=== PATIENT | male | born 1950 | race Caucasian/White ===

== ENCOUNTER 2018-04-09 14:51 | Emergency (ER) | payer OTHER ==
--- NOTE | 2018-04-09 15:43 | ER ---
Nurse's Notes [facility] Name: Remy Irwin Sr Age: 67 yrs Sex: Male : 1950 Arrival Date: 04/09/2018 Time: 14:55 Bed 30 Private MD: Out, [facility] Diagnosis: Other bursitis of elbow, left elbow Presentation: 04/09 14:58 Presenting complaint: Patient states: swelling to L elbow for almost a month. my ch Medicare nurse said it sounds like bursitis, and that I should get it checked. Transition of care: patient was not received from another setting of care. Onset of symptoms was March 2018. Risk Assessment: Do you want to hurt yourself or someone else? Patient reports no desire to harm self or others. Initial Sepsis Screen: Does the patient meet any 2 criteria? No. Patient's initial sepsis screen is negative. Does the patient have a suspected source of infection? No. Patient's initial sepsis screen is negative. Care prior to arrival: None. 14:58 Method Of Arrival: Ambulatory 14:58 Acuity: ABISAI 5 Triage Assessment: 15:01 General: Appears in no apparent distress. comfortable, Behavior is calm, cooperative, ch appropriate for age. Pain: Denies pain. Historical: - Allergies: 15:01 Codeine; - Home Meds: 15:01 amlodipine 10 mg tab 1 tab once daily [Active]; ibuprofen Oral [Active]; - PMHx: 15:01 Hypertension; skin ca; - PSHx: 15:01 Hand - left; - Immunization history:: Adult Immunizations up to date. - Social history:: Smoking status: Patient uses tobacco products, smokes one pack cigarettes per day. - Ebola Screening: : Patient negative for fever greater than or equal to 101.5 degrees Fahrenheit, and additional compatible Ebola Virus Disease symptoms Patient denies exposure to infectious person Patient denies travel to an Ebola-affected area in the 21 days before illness onset No symptoms or risks identified at this time. Screenin:10 Abuse screen: Denies threats or abuse. Denies injuries from another. Nutritional ed1 screening: No deficits noted. Tuberculosis screening: No symptoms or risk factors identified. Fall Risk None identified. Assessment: 15:09 General: Appears in no apparent distress. comfortable, Behavior is calm, cooperative. ed1 Pain: Denies pain. Neuro: Level of Consciousness is awake, alert, obeys commands, Oriented to person, place, time, situation. Cardiovascular: Denies chest pain, Heart tones S1 S2 present. Respiratory: Airway is patent Respiratory effort is even, unlabored, Respiratory pattern is regular, symmetrical, Breath sounds are clear bilaterally. GI: No signs and/or symptoms were reported involving the gastrointestinal system. : No signs and/or symptoms were reported regarding the genitourinary system. EENT: No signs and/or symptoms were reported regarding the EENT system. Derm: Skin is pink, warm \T\ dry. Musculoskeletal: Circulation, motion, and sensation intact. Range of motion: intact in all extremities, Swelling present in left elbow. 15:12 General: The previous assessment is accurate, call light remains within reach. . 16:06 Reassessment: Patient appears in no apparent distress at this time. No changes from ed1 previously documented assessment. Patient and/or family updated on plan of care and expected duration. Pain level reassessed. Patient is alert, oriented x 3, equal unlabored respirations, skin warm/dry/pink. Patient denies pain at this time. Vital Signs: 15:01 BP 148 / 87; Pulse 62; Resp 18; Temp 98.2; Pulse Ox 97% on R/A; Weight 81.65 kg; Height 6 ft. 2 in. (187.96 cm); Pain 0/10; 16:06 BP 152 / 84; Pulse 63; Resp 18; Pulse Ox 98% on R/A; Pain 0/10; ed1 15:01 Body Mass Index 23.11 (81.65 kg, 187.96 cm) ED Course: 14:55 Patient arrived in ED. sb2 14:56 Out, [facility] is Private Physician. sb2 14:59 Triage completed. 15:01 Arm band placed on left wrist. Patient placed in an exam room, on a stretcher. 15:03 Brian Schwartz PA is PHCP. [facility] 15:03 Nino Miller MD is Attending Physician. [facility] 15:09 Kavya José LVN is Primary Nurse. ed1 15:10 Patient has correct armband on for positive identification. Bed in low position. ed1 15:41 Srinivas Coleman MD is Referral Physician. [facility] 16:06 No provider procedures requiring assistance completed. Patient did not have IV access ed1 during this emergency room visit. Administered Medications: No medications were administered Outcome: 15:42 Discharge ordered by . les 16:06 Discharged to home ambulatory. ed1 16:06 Condition: good 16:06 Discharge instructions given to patient, Instructed on discharge instructions, follow up and referral plans. Demonstrated understanding of instructions, follow-up care. 16:07 Patient left the ED. ed1 Signatures: Lacey Garcia, RN RN Brian Newton PA PA jmm Smirch, Shelby, RN RN ss Kavya José, ICT DEVELOPER ICT DEVELOPER ed1 Ainsley Downey sb2 Corrections: (The following items were deleted from the chart) 15:16 15:09 Musculoskeletal: Circulation, motion, and sensation intact. Range of motion: ed1 intact in all extremities, ed1
--- NOTE | 2018-04-09 16:08 | EDPHYS ---
Physician Documentation [facility] Name: Remy Irwin Sr Age: 67 yrs Sex: Male : 1950 Arrival Date: 04/09/2018 Time: 14:55 Bed 30 Private MD: Out, [facility] ED Physician Nino Miller HPI: 04/09 15:45 This 67 yrs old Male presents to ER via Ambulatory with complaints of Elbow jmm Pain. 15:45 Onset: The symptoms/episode began/occurred gradually, 5 day(s) ago. Associated signs jmm and symptoms: Pertinent positives: swelling, Pertinent negatives: fever. Modifying factors: The patient symptoms are alleviated by nothing, the patient symptoms are aggravated by nothing. This is a 67 year old male with a hx of htn that presents to the ED with swelling to his left elbow. Denies fever, denies pain, denies trauma. Patient states he has performed a great deal of repetitive activities over the past week. Symptoms have been ongoing for the past 5 days. . Historical: - Allergies: 15:01 Codeine; ch - Home Meds: 15:01 amlodipine 10 mg tab 1 tab once daily [Active]; ibuprofen Oral [Active]; ch - PMHx: 15:01 Hypertension; skin ca; ch - PSHx: 15:01 Hand - left; ch - Immunization history:: Adult Immunizations up to date. - Social history:: Smoking status: Patient uses tobacco products, smokes one pack cigarettes per day. - Ebola Screening: : Patient negative for fever greater than or equal to 101.5 degrees Fahrenheit, and additional compatible Ebola Virus Disease symptoms Patient denies exposure to infectious person Patient denies travel to an Ebola-affected area in the 21 days before illness onset No symptoms or risks identified at this time. ROS: 15:45 Constitutional: Negative for fever, chills, and weight loss, Cardiovascular: Negative jmm for chest pain, palpitations, and edema, Respiratory: Negative for shortness of breath, cough, wheezing, and pleuritic chest pain. 15:45 Skin: Negative for injury, rash, and discoloration. 15:45 MS/extremity: Positive for swelling, Negative for erythema. 15:45 Skin: Negative for erythema. 15:45 Neuro: Negative for weakness. 15:45 All other systems are negative. Exam: 15:45 Head/Face: atraumatic. [facility] 15:45 Constitutional: The patient appears in no acute distress, alert, awake. 15:45 Cardiovascular: Rate: normal. 15:45 Respiratory: the patient does not display signs of respiratory distress, Respirations: normal. 15:45 Musculoskeletal/extremity: FROM appreciated at the left elbow, compartments soft, full distal radial pulse, swelling is appreciated. No bony tenderness is appreciated. 15:45 Skin: Appearance: Color: normal in color, no erythema or induration appreciated at the left elbow. 15:45 Neuro: Orientation: is normal, Mentation: is normal, Memory: is normal, Gait: is steady. Vital Signs: 15:01 BP 148 / 87; Pulse 62; Resp 18; Temp 98.2; Pulse Ox 97% on R/A; Weight 81.65 kg; Height ch 6 ft. 2 in. (187.96 cm); Pain 0/10; 16:06 BP 152 / 84; Pulse 63; Resp 18; Pulse Ox 98% on R/A; Pain 0/10; ed1 15:01 Body Mass Index 23.11 (81.65 kg, 187.96 cm) MDM: 15:41 Patient medically screened. [facility] 15:45 Differential diagnosis: bursitis, septic joint, arthritis. Data reviewed: vital signs, [facility] nurses notes. ED course: PE findings are not consistent with a septic joint or cellulitis. No trauma, no bony tenderness. Patient is encouraged to follow up with orthopedics and is given return precautions for fever, increased pain, redness,. Patient understood and agrees with the plan of care. . Administered Medications: No medications were administered Disposition: 04/09/18 15:42 Discharged to Home. Impression: Other bursitis of elbow, left elbow. - Condition is Stable. - Discharge Instructions: Bursitis. - Prescriptions for Ibuprofen 800 mg Oral Tablet - take 1 tablet by ORAL route every 12 hours As needed take with food; 20 tablet. - Medication Reconciliation Form, Thank You Letter, Antibiotic Education, Prescription Opioid Use form. - Follow up: Srinivas Coleman MD; When: 1 - 2 days; Reason: Recheck today's complaints. - Notes: Please follow up with orthopedics for further evaluation of your elbow swelling, please return to the ED if you develop pain, fever, increased swelling or any other concerning symptoms. Addendum: 04/17/2018 11:03 Co-signature as Attending Physician, Nino Miller MD. g s Signatures: Lacey Garcia, RN RN Brian Newton PA PA les José, Kavya, SOLAR INSTALLATION HELPER SOLAR INSTALLATION HELPER ed1 Nino Miller MD MD Corrections: (The following items were deleted from the chart) 04/09 16:07 15:42 04/09/2018 15:42 Discharged to Home. Impression: Other bursitis of elbow, left ed1 elbow. Condition is Stable. Forms are Medication Reconciliation Form, Thank You Letter, Antibiotic Education, Prescription Opioid Use. Follow up: Srinivas Coleman; When: 1 - 2 days; Reason: Recheck today's complaints. tod 04/10 01:11 04/09 15:45 ED course: PE findings are not consistent with a septic joint or jmm cellulitis. No trauma, no bony tenderness. Patient is encouraged to follow up with orthopedics and is given return precautions for fever, increased pain, redness, ext. Patient understood and agrees with the plan of care. . les
[2018-04-09 16:57] VITALS: TEMP 98.2
[2018-04-09 16:58] VITALS: BP 152/84; O2SAT 98
== END 2018-04-09 16:07 | disposition home or self-care (01) ==
LOC: ER 14:51
DX: M71.522 Other bursitis, not elsewhere classified, left elbow (principal); I10 Essential (primary) hypertension; F17.210 Nicotine dependence, cigarettes, uncomplicated; Z88.5 Allergy status to narcotic agent; Z85.828 Personal history of other malignant neoplasm of skin
CPT/HCPCS: 99281

== ENCOUNTER 2021-02-16 12:35 | Emergency (ER) | payer OTHER ==
--- NOTE | 2021-02-16 14:18 | RAD REPORT ---
EXAM DESCRIPTION: US - Extremity Venous Uni Ltd - 02/16/2021 1:42 pm CLINICAL HISTORY: PAIN PAIN, left lower extremity COMPARISON: None. TECHNIQUE: Real-time sonographic evaluation of the left lower extremity deep venous system was perfo rmed. FINDINGS: Normal compressibility, flow augmentation, phasic flow and spontaneous flow are identified in the left lower extremity common femoral, superficial femoral, popliteal and posterior tibial vein s. No intraluminal filling defects seen. IMPRESSION: No DVT in the left lower extremity.
--- NOTE | 2021-02-16 14:20 | RAD REPORT ---
EXAM DESCRIPTION: RAD - Knee Left 3 View - 02/16/2021 2:11 pm CLINICAL HISTORY: PAIN COMPARISON: No comparisons FINDINGS: No fracture, dislocation or periosteal reaction.No joint effusion seen. No joint space radha rowing. No soft tissue abnormality. Arterial tree calcifications are present. IMPRESSION: Negative left knee. Clinical concerns for internal derangement or occult bony injury could be further assessed with MR im aging.
--- NOTE | 2021-02-16 14:22 | RAD REPORT ---
EXAM DESCRIPTION: CT - Head Brain Wo Cont - 02/16/2021 2:08 pm CLINICAL HISTORY: NUMBNESS COMPARISON: No comparisons TECHNIQUE: Axial 5 mm thick images of the head were obtained without IV contrast. All CT scans are performed using dose optimization technique as appropriate and may include automated exposure control or mA/KV adjustment according to patient size. FINDINGS: No intracranial hemorrhage, mass, edema or shift of mid-line structures. No acute cortical based infarction seen. No cortical edema or sulcal effacement. Patient has very extensive diminished attenuation throughout the cerebral white matter extending into the basal ganglia and minimally into each thalamus. Patient has very little atrophy change. Ventricles are normal. Mastoid air cells and visualized portions of the paranasal sinuses are clear. No acute bony findings. IMPRESSION: No intracranial hemorrhage or mass lesion. An acute cortical based infarction is not identified. Patient has a very advanced for age chronic ischemic pattern which can easily mask areas of nonhemorr hagic CVA.
[2021-02-16] MEDS ORDERED: ASPIRIN 81 MG CHEWABLE TABLET ONE (15:08)
--- NOTE | 2021-02-16 15:12 | EDPHYS ---
Physician Documentation [facility] Name: Remy Irwin Sr Age: 70 yrs Sex: Male : 1950 Arrival Date: 02/16/2021 Time: 12:37 Bed 15 Private MD: Jorge [facility] ED Physician Miller Combs HPI: 02/16 13:25 This 70 yrs old Male presents to ER via Ambulatory with complaints of cp Numbness - left side, Blood Pressure Problem. 13:25 The patient has elevated blood pressure and discovered this at home. Onset: The cp symptoms/episode began/occurred gradually. Severity of symptoms: in the emergency department the blood pressure is are actually worse, 171 mm Hg. Patient reports history of htn in the past and being taken off blood pressure medication amlodipine due to low blood pressure. Patient reports measuring high blood pressure over past several days so he resumed taking the Amlodipine over past 3 days. Patient states around 0830 noticed numbness left hand and left ankle and that blood pressure was elevated. Patient also c/o left knee pain for awhile. Patient reports he does not have an appt until March with new physician . Historical: - Allergies: 12:52 Codeine; ca1 - PMHx: 12:52 Hypertension; skin ca; CAD; COPD; Angina; asbestosis; ca1 - PSHx: 12:52 Leg surgery; ca1 - Immunization history:: Client reports having NOT received the Covid vaccine. Pneumococcal vaccine is up to date, Flu vaccine is not up to date. - Social history:: Smoking status: Patient reports the use of cigarette tobacco products, smokes one pack cigarettes per day. ROS: 13:30 Constitutional: Negative for body aches, chills, fever, poor PO intake. cp 13:30 Eyes: Negative for injury, pain, redness, and discharge. cp 13:30 Cardiovascular: Negative for chest pain, edema, palpitations. 13:30 Respiratory: Negative for cough, shortness of breath, wheezing. 13:30 Abdomen/GI: Negative for abdominal pain, nausea, vomiting, and diarrhea. Exam: 13:35 Head/Face: Normocephalic, atraumatic. cp 13:35 Constitutional: The patient appears in no acute distress, alert, awake, non-diaphoretic, non-toxic, well developed, well nourished. 13:35 Eyes: Periorbital structures: appear normal, Pupils: equal, round, and reactive to cp light and accomodation, Extraocular movements: intact throughout, Sclera: no appreciated abnormality, Lids and lashes: appear normal, bilaterally. 13:35 ENT: External ear(s): are unremarkable, Nose: is normal, Mouth: Lips: moist, Oral mucosa: normal, Posterior pharynx: Airway: no evidence of obstruction, patent. 13:35 Neck: C-spine: vertebral tenderness, is not appreciated, crepitus, is not appreciated, ROM/movement: is normal, is supple, without pain, no range of motions limitations. 13:35 Chest/axilla: Inspection: normal, Palpation: is normal, no crepitus, no tenderness. cp 13:35 Cardiovascular: Rate: normal, Rhythm: regular, Heart sounds: murmur, not appreciated, Edema: is not appreciated, JVD: is not appreciated. 13:35 Respiratory: the patient does not display signs of respiratory distress, Respirations: normal, no use of accessory muscles, no retractions, Breath sounds: are clear throughout, no decreased breath sounds, no stridor, no wheezing. 13:35 Abdomen/GI: Inspection: abdomen appears normal, Palpation: abdomen is soft and non-tender, in all quadrants. 13:35 Back: pain, is absent, ROM is normal. 13:35 Skin: no rash present. 13:35 Neuro: Orientation: to person, place \T\ time. Mentation: is normal, Cerebellar function: is grossly normal, Motor: moves all fours, strength is normal, Sensation: numbness, that is mild, of the left hand and medial aspect of left ankle, Gait: is steady, at a normal pace, without difficulty. Vital Signs: 12:45 BP 171 / 102; Pulse 61; Resp 16 S; Temp 97.2(TE); Pulse Ox 99% on R/A; Weight 79.38 kg ca1 (R); Height 6 ft. 0 in. (182.88 cm) (R); Pain 1/10; 14:12 BP 154 / 98; Pulse 64; Resp 18; Pulse Ox 99% on R/A; bw 12:45 Body Mass Index 23.73 (79.38 kg, 182.88 cm) ca1 MDM: 13:06 Patient medically screened. cp 14:00 Differential diagnosis: hypertensive crisis, Malignant HTN, CVA, intracerebral cp hemorrhage. 15:10 Data reviewed: vital signs, nurses notes, radiologic studies, CT scan, plain films, and cp as a result, I will discharge patient. 15:11 Counseling: I had a detailed discussion with the patient and/or guardian regarding: the cp historical points, exam findings, and any diagnostic results supporting the discharge/admit diagnosis, the presence of at least one elevated blood pressure reading (>120/80) during this emergency department visit, radiology results, the need for outpatient follow up, for definitive care, a family practitioner, to return to the emergency department if symptoms worsen or persist or if there are any questions or concerns that arise at home. 15:11 ED course: VSS. Radiology studies negative for acute findings. Patient instructed to cp take baby aspirin daily and will discharge to home to f/u with family physician. 02/16 13:18 Order name: CT Head Brain wo Cont: numbness of left foot; Complete Time: 14:28 cp 02/16 13:18 Order name: XRAY Knee LEFT 3 view; Complete Time: 14:28 cp 02/16 13:18 Order name: US Extremity Venous Unilateral Ltd; Complete Time: 14:28 cp 02/16 14:35 Interpretation: Report reviewed. cp Administered Medications: 14:52 Drug: Aspirin Chewable Tablet 81 mg Route: PO; iw 15:17 Follow up: Response: No adverse reaction iw Disposition: 18:46 Co-signature as Attending Physician, Miller Combs MD I agree with the assessment and tw4 plan of care. Disposition: 02/16/21 15:12 Discharged to Home. Impression: Hypertensive heart disease, Pain in left knee, Paresthesia of skin - left foot and left hand. - Condition is Stable. - Discharge Instructions: Paresthesia, Knee Pain, Aspirin and Your Heart, Managing Your Hypertension. - Medication Reconciliation Form, Thank You Letter, Antibiotic Education, Prescription Opioid Use form. - Follow up: Sukhwinder Patel DO; When: 2 - 3 days; Reason: Recheck today's complaints. - Problem is new. - Symptoms have improved. Signatures: Dispatcher [employer] EDMS Ophelia Elizabeth RN RN iw Roger Henriquez PA PA cp Wadley, Terrence, MD MD tw4 Mojgan Garcia RN RN ca1 Corrections: (The following items were deleted from the chart) 15:21 15:12 02/16/2021 15:12 Discharged to Home. Impression: Hypertensive heart disease; Pain iw in left knee; Paresthesia of skin - left foot and left hand. Condition is Stable. Forms are Medication Reconciliation Form, Thank You Letter, Antibiotic Education, Prescription Opioid Use. Follow up: Sukhwinder Patel; When: 2 - 3 days; Reason: Recheck today's complaints. Problem is new. Symptoms have improved. cp
--- NOTE | 2021-02-16 15:12 | ER ---
Nurse's Notes [facility] Name: Remy Irwin Sr Age: 70 yrs Sex: Male : 1950 Arrival Date: 02/16/2021 Time: 12:37 Bed 15 Private MD: Sukhwinder Patel Diagnosis: Hypertensive heart disease;Pain in left knee;Paresthesia of skin-left foot and left hand Presentation: 02/16 12:45 Chief complaint: Patient states: Woke up this morning with high BP at 163/96. Reports ca1 numbness on L foot and L hand at around [id number], but it may have started last night before I went to bed. Also has pain on L knee, denies injury. Coronavirus screen: Client denies travel out of the [place] in the last 14 days. At this time, the client does not indicate any symptoms associated with coronavirus-19. Ebola Screen: Patient negative for fever greater than or equal to 101.5 degrees Fahrenheit, and additional compatible Ebola Virus Disease symptoms Patient denies exposure to infectious person. Patient denies travel to an Ebola-affected area in the 21 days before illness onset. No symptoms or risks identified at this time. Initial Sepsis Screen: Does the patient meet any 2 criteria? No. Patient's initial sepsis screen is negative. Does the patient have a suspected source of infection? No. Patient's initial sepsis screen is negative. Risk Assessment: Do you want to hurt yourself or someone else? Patient reports no desire to harm self or others. Onset of symptoms was February 16, 2021. 12:45 Method Of Arrival: Ambulatory ca1 12:45 Acuity: ABISAI 2 ca1 Triage Assessment: 15:16 General: Appears in no apparent distress. uncomfortable, Behavior is calm, cooperative, iw appropriate for age. Historical: - Allergies: 12:52 Codeine; ca1 - PMHx: 12:52 Hypertension; skin ca; CAD; COPD; Angina; asbestosis; ca1 - PSHx: 12:52 Leg surgery; ca1 - Immunization history:: Client reports having NOT received the Covid vaccine. Pneumococcal vaccine is up to date, Flu vaccine is not up to date. - Social history:: Smoking status: Patient reports the use of cigarette tobacco products, smokes one pack cigarettes per day. Screenin:12 Abuse screen: Denies threats or abuse. Nutritional screening: No deficits noted. bw Tuberculosis screening: No symptoms or risk factors identified. Fall Risk None identified. Assessment: 14:12 Pain: Complains of pain in left leg. Neuro: No deficits noted. Neuro: Level of bw Consciousness is awake, alert, obeys commands, confused, Oriented to person, place, time, situation, Production Recovery Operator are equal bilaterally Moves all extremities. Gait is steady, Speech is normal, Facial symmetry appears normal, Reports numbness in left leg. Cardiovascular: No deficits noted. Respiratory: No deficits noted. GI: No deficits noted. : No deficits noted. EENT: No deficits noted. 15:16 Reassessment: Patient appears in no apparent distress at this time. No changes from iw previously documented assessment. Vital Signs: 12:45 BP 171 / 102; Pulse 61; Resp 16 S; Temp 97.2(TE); Pulse Ox 99% on R/A; Weight 79.38 kg ca1 (R); Height 6 ft. 0 in. (182.88 cm) (R); Pain /; 14:12 BP 154 / 98; Pulse 64; Resp 18; Pulse Ox 99% on R/A; bw 12:45 Body Mass Index 23.73 (79.38 kg, 182.88 cm) ca1 ED Course: 12:37 Patient arrived in ED. am2 12:38 Sukhwinder Patel DO is Private Physician. am2 12:50 Triage completed. ca1 12:52 Arm band placed on right wrist. ca1 12:56 Roger Henriquez PA is PHCP. cp 12:56 Miller Combs MD is Attending Physician. cp 13:42 US Extremity Venous Unilateral Ltd In Process Unspecified. EDMS 14:08 CT Head Brain wo Cont: numbness of left foot In Process Unspecified. EDMS 14:12 XRAY Knee LEFT 3 view In Process Unspecified. EDMS 14:12 Nadia Marquez, MESERET is Primary Nurse. bw 14:12 Patient has correct armband on for positive identification. Pulse ox on. NIBP on. Warm bw blanket given. 14:12 No provider procedures requiring assistance completed. bw 14:12 Patient did not have IV access during this emergency room visit. bw 15:10 Sukhwinder Patel DO is Referral Physician. cp Administered Medications: 14:52 Drug: Aspirin Chewable Tablet 81 mg Route: PO; iw 15:17 Follow up: Response: No adverse reaction iw Outcome: 15:12 Discharge ordered by . shai 15:16 Discharged to home ambulatory. iw 15:16 Condition: stable 15:16 Discharge instructions given to patient. 15:21 Patient left the ED. iw Signatures: Dispatcher [employer] EDOphelia Choi RN RN iw Roger Henriquez PA PA cp Moreno, Amanda am2 Acob, Cheryl, RN RN [facility] Nadia Marquez RN RN
[2021-02-16 15:27] VITALS: TEMP 97.2; O2SAT 99
[2021-02-16 15:28] VITALS: BP 154/98
== END 2021-02-16 15:21 | disposition home or self-care (01) ==
LOC: ER 12:35
DX: I11.9 Hypertensive heart disease without heart failure (principal); M25.562 Pain in left knee; I10 Essential (primary) hypertension; F17.210 Nicotine dependence, cigarettes, uncomplicated; Z88.5 Allergy status to narcotic agent; Z85.828 Personal history of other malignant neoplasm of skin
CPT/HCPCS: 70450; 93971; 99283

== ENCOUNTER → 2021-09-20 | Day surgery (SDC) | payer OTHER ==
[2021-09-18 13:22] LABS: Absolute Lymphocytes (CBC) 1.1 K/uL (0.7-4.9); Basophils % 0.9 % (0-1.3); Hematocrit 41.3 % (39.6-49.0); Lymphocytes % 16.1 % (15.3-44.8); MPV 7.8 fL (7.6-11.3); RBC Red Blood Cell Count 4.63 M/uL (4.33-5.43)
[2021-09-18 13:34] LABS: Potassium 3.4 mmol/L (3.5-5.1)
--- NOTE | 2021-09-18 13:47 | RAD REPORT ---
EXAM DESCRIPTION: RAD - Chest Pa And Lat (2 Views) - 09/18/2021 1:40 pm CLINICAL HISTORY: PREOP SCREENING COMPARISON: CHEST PA AND LAT 2 VIEW dated 11/12/2011 FINDINGS: Lines: None. Lungs: No evidence of edema or pneumonia. Pleural: No significant pleural effusions or pneumothorax. Cardiac: The heart size is within normal limits. Bones: No acute fractures. Other: Metallic density overlying the right upper lung is unchanged . IMPRESSION: No acute cardiopulmonary disease.
--- NOTE | 2021-09-19 17:00 | EKG ---
Test Date: 2021-09-18 Test Time: 13:57:10 Volleyball Assistant Coach: ANGELA MEASUREMENT RESULTS: Intervals: Rate: 54 MD: 196 QRSD: 102 QT: 426 QTc: 403 Carr: P: 62 MD: 196 QRS: -87 T: 66 INTERPRETIVE STATEMENTS: Sinus bradycardia Left axis deviation Incomplete right bundle branch block Cannot rule out Inferior infarct, age undetermined Anteroseptal infarct, age undetermined Abnormal ECG Compared to ECG 05/16/2021 14:12:16 Left-axis deviation now present Right superior axis no longer present Myocardial infarct finding still present Electronically Signed On 09-19-21 16:57:13 ENGINEERING PROGRAM MANAGER by Wilian Saini
[~2021-09-20] MED LIST: LIDOCAINE 1% MPF 2 ML AMPULE ONE; Ringers Lactate 1,000 ML IV ONE; propofoL 200 MG/20 ML VIAL IV ONE
--- NOTE | 2021-09-20 08:17 | ENDO RPT ---
[address], [address] COLONOSCOPY PROCEDURE REPORT EXAM DATE: 09/20/2021 PATIENT NAME: Remy Irwin MR #: [id number] BIRTHDATE: 1950 ATTENDING: Richard Rosa M.D. STATUS: outpatient BELLOWS TESTER: Karie Colorado RN INDICATIONS: The patient is a 70 yr old Male here for a colonoscopy due to hemoccult positive stools PROCEDURE PERFORMED: Colonoscopy with hot biopsy polypectomy MEDICATIONS: Per Anesthesia. ESTIMATED BLOOD LOSS: Minimal CONSENT: The patient understands the risks and benefits of the procedure and understands that these risks include, but are not limited to: sedation, allergic reaction, infection, perforation and/or bleeding. Alternative means of evaluation and treatment include, among others: physical exam, x-rays, and/or surgical intervention. The patient elects to proceed with this endoscopic procedure. DESCRIPTION OF PROCEDURE: During intra-op preparation period all mechanical medical equipment was checked for proper function. Hand hygiene and appropriate measures for infection prevention was taken. Procedure, possible complications, alternatives including, but not limited to possibility of bleeding, perforation, tear, infection, sepsis, need for surgery, need for blood transfusion, were explained to the patient. After the risks, benefits and alternatives of the procedure were thoroughly explained, Informed consent was verified, confirmed and timeout was successfully executed by the treatment team. The patient was placed in the left lateral position. A digital rectal exam was performed and revealed an enlarged prostate. After appropriate level of anesthesia, the scope was passed. The EC-[id number] ([id number]) endoscope was introduced through the anus and advanced to the cecum, which was identified by the ileocecal valve. The quality of the prep was good. The instrument was then slowly withdrawn as the colon was fully examined. Scope withdrawal time was 29 minutes. COLON FINDINGS: Moderate diverticulosis was noted in the sigmoid colon. Retroflexed views revealed no abnormalities. The scope was then completely withdrawn from the patient and the procedure terminated. ADVERSE EVENTS: There were no complications. IMPRESSIONS: 1. Moderate diverticulosis was noted in the sigmoid colon 2. Transverse colon polyp RECOMMENDATIONS: 1. fiber rich diet 2. follow-up: office 1 week(s) 3. increase dietary water 4. no seeds in diet 5. await biopsy results RECALL: Return in 2 year(s) for Colonoscopy. Richard Rosa M.D. eSigned: Richard Rosa M.D. 09/20/2021 8:17 AM cc: Sukhwinder Patel MD CPT CODES: ICD9 CODES: PATIENT NAME: Remy Irwin MR#: [id number]
[2021-09-20 08:48] VITALS: TEMP 97.9
[2021-09-20 08:49] VITALS: BP 127/80; O2SAT 99
== END ==
LOC: PRE 06:46
PROVIDERS: ATTEND Surgery
PROC: 0DBL8ZX Excision of Transverse Colon, Via Natural or Artificial Opening Endoscopic, Diagnostic (ICD-10-PCS; principal; 2021-09-20 07:30)
DX: D12.3 Benign neoplasm of transverse colon (principal); K57.30 Diverticulosis of large intestine without perforation or abscess without bleeding; Z20.822 Contact with and (suspected) exposure to COVID-19
CPT/HCPCS: 93005; 85025; 80048; 36415; 88305; 71046; 45384; U0003; J2704 ×2; J7120

== ENCOUNTER 2021-11-16 11:00 | Emergency (ER) | payer OTHER ==
--- OUTSIDE RECORDS SUMMARY | 2021-11-16 11:04 | XMS REPORT | Continuity of Care Document ---
:1950 Author Organization [facility] t Address [address] [place] [address] Care Team Providers Name Role Phone Unavailable Unavailable Unavailable Problems This patient has no known problems. Allergies, Adverse Reactions, Alerts This patient has no known allergies or adverse reactions. Medications This patient has no known medications. Procedures This patient has no known procedures. Encounters Start End Encounter Admission Attending Care Care Encounter Source Date/Time Date/Time Type Type Clinicians Facility Department ID 2021-10-03 2021-10-03 ambulatory [facility] [id number] [facility] 2021-10-03 2021-10-03 ambulatory [facility] [id number] [facility] 2021-10-01 2021-10-01 ambulatory [facility] [id number] [facility] 2021-09-12 2021-09-12 ambulatory [facility] [id number] [facility] 2021-08-31 2021-08-31 Outpatient [facility] [id number] [facility] 2021-08-20 2021-08-20 Outpatient [facility] [id number] [facility] 2021-08-06 2021-08-06 [facility] [id number] [facility] 2021-08-03 2021-08-03 [facility] [id number] [facility] 2021-07-31 2021-07-31 [facility] [id number] [facility] 2021-07-26 2021-07-26 [facility] [id number] [facility] 2021-07-05 2021-07-05 [facility] [id number] [facility] 2021-06-19 2021-06-19 Out[facility] [id number] [facility] 2021-06-18 2021-06-18 Out[facility] [id number] [facility] 2021-05-31 2021-05-31 [facility] [id number] [facility] 2021-05-23 2021-05-23 Out[facility] [id number] [facility] 2021-05-14 2021-05-14 [facility] [id number] [facility] 2021-05-14 2021-05-14 [facility] [id number] [facility] 2021-05-14 2021-05-14 Outpatient [facility] [id number] [facility] 2021-04-24 2021-04-24 Outpatient [facility] [id number] [facility] 2021-04-10 2021-04-10 Outpatient [facility] [id number] [facility] 2021-03-12 2021-03-12 Outpatient [facility] [id number] [facility] Results This patient has no known results.
[2021-11-16] MEDS ORDERED: KETOROLAC 30 MG/ML INJ ONE (12:07)
--- NOTE | 2021-11-16 12:23 | RAD REPORT ---
EXAM DESCRIPTION: CT - Spine Lumbar Wo Con - 11/16/2021 12:15 pm CLINICAL HISTORY: Radiculopathy. PAIN COMPARISON: LUMBAR SPINE 3 VIEWS dated 11/12/2011 TECHNIQUE: Axial noncontrast CT imaging of the lumbar spine was performed with coronal and sagittal re-formatted images. All CT scans are performed using dose optimization technique as appropriate and may include automated exposure control or mA/KV adjustment according to patient size. FINDINGS: Probably chronic compression fracture at L4 with approximately 30% loss of height centrall y and minimal bony retropulsion. No discrete fracture lines are identified. A right sacral fracture i s identified. This is nondisplaced. Atherosclerosis. Intervertebral disc disease assessment is inherently limited by CT. Within these limitations, no high -grade canal stenosis suspected. IMPRESSION: Nondisplaced fracture of the sacrum on the right side. Chronic appearing L4 compression fracture without significant bony retropulsion.
--- NOTE | 2021-11-16 12:31 | RAD REPORT ---
EXAM DESCRIPTION: CT - Pelvis Wo Cont - 11/16/2021 12:19 pm CLINICAL HISTORY: Back Left hip pain COMPARISON: Spine Lumbar Wo Con dated 11/16/2021 FINDINGS: Nondisplaced fracture of the right sacral wing. Nondisplaced fracture of the right superio r pubic ramus. Nondisplaced fracture of the left inferior pubic ramus and at the pubic symphysis. No dislocation. Colonic wall thickening and stranding primarily involving the ascending colon and to a lesser extent the sigmoid colon and rectum. Small fat containing inguinal hernias. Peripheral vascular calcificatio ns. IMPRESSION: 1. Multiple nondisplaced pelvic fractures including the right sacral ala, right superior pubic ramus, and left obturator ring. 2. Wall thickening at the colon, particularly the ascending colon is concerning for the presence of a colitis.
--- NOTE | 2021-11-16 12:54 | ER ---
Nurse's Notes [facility] Name: Remy Irwin Sr Age: 70 yrs Sex: Male : 1950 Arrival Date: 11/16/2021 Time: 11:04 Bed 5 Private MD: Diagnosis: nondisplaced fracture of the sacrum on the right side, chronic L4 fracture, nondisplaced pelvic fractures including right sacral ala, right superior pubic ramus, left obturator ring. Presentation: 11/16 11:30 Chief complaint: Patient states: last week , 11/08/21, was standing on kitchen vg1 table chair and lost balance on fell onto Right side of body. States back pain; took Neurobion this morning. Coronavirus screen: Vaccine status: Patient reports receiving the 2nd dose of the covid vaccine. Client indicates they have traveled out of the [place] in the last 14 days. Client traveled to: [place]; was there for about five weeks; came back to [facility] two days ago. Ebola Screen: Patient negative for fever greater than or equal to 101.5 degrees Fahrenheit, and additional compatible Ebola Virus Disease symptoms. Initial Sepsis Screen: Does the patient meet any 2 criteria? No. Patient's initial sepsis screen is negative. Does the patient have a suspected source of infection? No. Patient's initial sepsis screen is negative. Risk Assessment: Do you want to hurt yourself or someone else? Patient reports no desire to harm self or others. Onset of symptoms was November 08, 2021. 11:30 Method Of Arrival: Wheelchair vg1 11:30 Acuity: ABISAI 3 vg1 Triage Assessment: 11:36 General: Appears in no apparent distress. comfortable, Behavior is calm, cooperative. vg1 Pain: Complains of pain in back. Neuro: Level of Consciousness is awake, alert, obeys commands, Oriented to person, place, time, situation. Historical: - Allergies: 11:36 Codeine; vg1 - Home Meds: 11:36 amlodipine 10 mg tab 1 tab once daily [Active]; Hydrochlorothiazide Oral [Active]; vg1 atorvastatin oral [Active]; Neurobion [Active]; - PMHx: 11:36 Angina; asbestosis; CAD; COPD; Hypertension; skin ca; vg1 - Immunization history:: Client reports receiving the 2nd dose of the Covid vaccine. - Social history:: Smoking status: Patient reports the use of cigarette tobacco products, smokes one pack cigarettes per day. Patient uses alcohol, weekly. Screenin:10 Abuse screen: Denies threats or abuse. Nutritional screening: No deficits noted. tw2 Tuberculosis screening: No symptoms or risk factors identified. Fall Risk Secondary diagnosis (15 points) impaired mobility. Assessment: 13:14 Reassessment: Patient appears in no apparent distress at this time. No changes from jl7 previously documented assessment. Patient and/or family updated on plan of care and expected duration. Pain level reassessed. Patient is alert, oriented x 3, equal unlabored respirations, skin warm/dry/pink. Vital Signs: 11:30 BP 151 / 89; Pulse 62; Resp 16; Temp 98.2; Pulse Ox 100% ; Weight 86.18 kg; Height 6 vg1 ft. 0 in. (182.88 cm); Pain 8/10; 12:00 BP 140 / 84; Pulse 58; Resp 18; Pulse Ox 97% on R/A; jg9 13:15 BP 145 / 76; Pulse 56; Resp 17; Pulse Ox 100% on R/A; tw2 11:30 Body Mass Index 25.77 (86.18 kg, 182.88 cm) vg1 ED Course: 11:04 Patient arrived in ED. mr 11:33 Von Granados MD is Attending Physician. kdr 11:36 Triage completed. vg1 11:36 Arm band placed on. vg1 11:40 Bed in low position. Call light in reach. rug weaver on. Pulse ox on. NIBP on. jl7 12:01 Karina Loaiza, MESERET is Primary Nurse. jg9 12:15 CT Lumbar Spine Wo Con In Process Unspecified. EDMS 12:18 CT Pelvis wo Cont In Process Unspecified. EDMS 13:14 No provider procedures requiring assistance completed. Patient did not have IV access jl7 during this emergency room visit. Administered Medications: 12:26 Drug: Ketorolac 15 mg Route: IM; Site: left deltoid; jl7 13:10 Follow up: Response: No adverse reaction; Pain is decreased tw2 Outcome: 12:53 Discharge ordered by . kdr 13:14 Discharged to home via wheelchair. jl7 13:14 Condition: stable 13:14 Condition: stable 13:14 Discharge instructions given to patient, family, Instructed on discharge instructions, follow up and referral plans. Demonstrated understanding of instructions, follow-up care, medications, Prescriptions given X 2. 13:15 Patient left the ED. jl7 Signatures: Dispatcher [employer] EDMS Von Granados MD MD kdr Rivera, Britni mr Ant, Aliza, RN RN tw2 Arabella Alcazar RN RN jl7 Cortney Bailey RN RN vg1 Karina Loaiza RN RN jg9
--- NOTE | 2021-11-16 12:54 | EDPHYS ---
Physician Documentation [facility] Name: Remy Irwin Sr Age: 70 yrs Sex: Male : 1950 Arrival Date: 11/16/2021 Time: 11:04 Bed 5 Private MD: ED Physician Von Granados HPI: 11/16 15:53 This 70 yrs old Male presents to ER via Wheelchair with complaints of Fall Injury. kdr 15:53 Details of fall: The patient fell from a height, off furniture. Onset: The kdr symptoms/episode began/occurred suddenly, 10 day(s) ago. Associated injuries: The patient sustained Pelvis and left hip. Severity of symptoms: At their worst the symptoms were mild, moderate, just prior to arrival, in the emergency department the symptoms are unchanged. The patient has not experienced similar symptoms in the past. He has plain films in [place] before traveling back to the [facility]. No acute fractures were identified with the plain films. Patient had a fall about 10 days ago on a chair in the kitchen that he was standing on. He complains of pain to his left pelvis and hip. Also some minor low back pain. He impacted the ground on his right side. Most of the pain appears to be on his left. Historical: - Allergies: 11:36 Codeine; vg1 - Home Meds: 11:36 amlodipine 10 mg tab 1 tab once daily [Active]; Hydrochlorothiazide Oral [Active]; vg1 atorvastatin oral [Active]; Neurobion [Active]; - PMHx: 11:36 Angina; asbestosis; CAD; COPD; Hypertension; skin ca; vg1 - Immunization history:: Client reports receiving the 2nd dose of the Covid vaccine. - Social history:: Smoking status: Patient reports the use of cigarette tobacco products, smokes one pack cigarettes per day. Patient uses alcohol, weekly. ROS: 15:53 Constitutional: Negative for fever, chills, and weight loss, Eyes: Negative for injury, kdr pain, redness, and discharge, ENT: Negative for injury, pain, and discharge, Neck: Negative for injury, pain, and swelling, Cardiovascular: Negative for chest pain, palpitations, and edema, Respiratory: Negative for shortness of breath, cough, wheezing, and pleuritic chest pain, Abdomen/GI: Negative for abdominal pain, nausea, vomiting, diarrhea, and constipation, : Negative for injury, bleeding, discharge, and swelling, Skin: Negative for injury, rash, and discoloration, Neuro: Negative for headache, weakness, numbness, tingling, and seizure activity. Psych: Negative for depression, anxiety, suicide ideation, homicidal ideation, and hallucinations, Allergy/Immunology: Negative for hives, rash, and allergies, Endocrine: Negative for neck swelling, polydipsia, polyuria, polyphagia, and marked weight changes, Hematologic/Lymphatic: Negative for swollen nodes, abnormal bleeding, and unusual bruising. 15:53 Back: Positive for pain at rest, pain with movement, of the low back area. Exam: 15:53 Constitutional: This is a well developed, well nourished patient who is awake, alert, kdr and in no acute distress. Head/Face: Normocephalic, atraumatic. Eyes: Pupils equal round and reactive to light, extra-ocular motions intact. Lids and lashes normal. Conjunctiva and sclera are non-icteric and not injected. Cornea within normal limits. Periorbital areas with no swelling, redness, or edema. Neck: Trachea midline, no thyromegaly or masses palpated, and no cervical lymphadenopathy. Supple, full range of motion without nuchal rigidity, or vertebral point tenderness. No Meningismus. Chest/axilla: Normal chest wall appearance and motion. Nontender with no deformity. No lesions are appreciated. Cardiovascular: Regular rate and rhythm with a normal S1 and S2. No gallops, murmurs, or rubs. Normal PMI, no JVD. No pulse deficits. Respiratory: Lungs have equal breath sounds bilaterally, clear to auscultation and percussion. No rales, rhonchi or wheezes noted. No increased work of breathing, no retractions or nasal flaring. Abdomen/GI: Soft, non-tender, with normal bowel sounds. No distension or tympany. No guarding or rebound. No evidence of tenderness throughout. Skin: Warm, dry with normal turgor. Normal color with no rashes, no lesions, and no evidence of cellulitis. Neuro: Awake and alert, GCS 15, oriented to person, place, time, and situation. Cranial nerves II-XII grossly intact. Motor strength 5/5 in all extremities. Sensory grossly intact. Cerebellar exam normal. Normal gait. Psych: Awake, alert, with orientation to person, place and time. Behavior, mood, and affect are within normal limits. 15:53 Abdomen/GI: On the CT report, the radiology suspected possible colitis on the right ascending colon. However on exam this radiologic finding was not supported. 15:53 Musculoskeletal/extremity: Patient has pain in his low back, left supra iliac crest area as well as left hip.. Vital Signs: 11:30 BP 151 / 89; Pulse 62; Resp 16; Temp 98.2; Pulse Ox 100% ; Weight 86.18 kg; Height 6 vg1 ft. 0 in. (182.88 cm); Pain 8/10; 12:00 BP 140 / 84; Pulse 58; Resp 18; Pulse Ox 97% on R/A; jg9 13:15 BP 145 / 76; Pulse 56; Resp 17; Pulse Ox 100% on R/A; tw2 11:30 Body Mass Index 25.77 (86.18 kg, 182.88 cm) vg1 MDM: 12:53 Patient medically screened. kdr 15:53 Data reviewed: vital signs, nurses notes, lab test result(s), radiologic studies. kdr Counseling: I had a detailed discussion with the patient and/or guardian regarding: the historical points, exam findings, and any diagnostic results supporting the discharge/admit diagnosis, lab results, radiology results, the need for outpatient follow up. 11/16 13:05 Order name: Urine Dipstick-Ancillary [facility] 11/16 11:59 Order name: CT Lumbar Spine Wo Con; Complete Time: 12:54 kdr 11/16 11:59 Order name: Urine Dipstick-Ancillary (obtain specimen); Complete Time: 13:08 kdr 11/16 11:59 Order name: CT Pelvis wo Cont; Complete Time: 12:54 kdr Administered Medications: 12:26 Drug: Ketorolac 15 mg Route: IM; Site: left deltoid; jl7 13:10 Follow up: Response: No adverse reaction; Pain is decreased tw2 Disposition Summary: 11/16/21 12:53 Discharge Ordered Location: Home kdr Problem: an ongoing problem kdr Symptoms: have improved kdr Condition: Stable kdr Diagnosis - nondisplaced fracture of the sacrum on the right side, chronic L4 fracture, kdr nondisplaced pelvic fractures including right sacral ala, right superior pubic ramus, left obturator ring. Followup: kdr - With: Private Physician - When: 2 - 3 days - Reason: If symptoms return, Further diagnostic work-up, Recheck today's complaints, Continuance of care, Re-evaluation by your physician Discharge Instructions: - Discharge Summary Sheet kdr - Simple Pelvic Fracture, Adult kdr Forms: - Medication Reconciliation Form kdr - Thank You Letter kdr - Antibiotic Education kdr - Prescription Opioid Use kdr Prescriptions: - Ibuprofen 600 mg Oral Tablet - take 1 tablet by ORAL route every 6 hours As needed take with food; 30 tablet; kdr Refills: 0, Product Selection Permitted - Tramadol 50 mg Oral Tablet - take 2 tablet by ORAL route every 8 hours As needed as needed. Use primarily kdr at night for sleep; 18 tablet; Refills: 0, Product Selection Permitted Signatures: Dispatcher [employer] EDMS Von Granados MD MD kdr Leal, Jahala, RN RN jl7 Cortney Bailey RN RN vg1 Aliza Cain RN tw2 Corrections: (The following items were deleted from the chart) 12:56 12:53 Articular fracture of head of femur kdr kdr
[2021-11-16 13:05] LABS: Urine Blood Negative (Negative); Urine Glucose Negative (Negative); Urine Protein Negative (Negative); Urine Specific Gravity 1.025 (1.005-1.030)
[2021-11-16 13:31] VITALS: TEMP 98.2; O2SAT 100
[2021-11-16 13:32] VITALS: BP 145/76
== END 2021-11-16 13:15 | disposition home or self-care (01) ==
LOC: ER 11:00
DX: S32.810A Multiple fractures of pelvis with stable disruption of pelvic ring, initial encounter for closed fracture (principal); S32.10XA Unspecified fracture of sacrum, initial encounter for closed fracture; W08.XXXA Fall from other furniture, initial encounter; F17.210 Nicotine dependence, cigarettes, uncomplicated; I10 Essential (primary) hypertension; J44.9 Chronic obstructive pulmonary disease, unspecified; Z88.5 Allergy status to narcotic agent
CPT/HCPCS: 72131; 72192; 81003; 96372; 99284

== ENCOUNTER 2025-07-22 11:46 | Emergency (ER) | payer OTHER ==
--- OUTSIDE RECORDS SUMMARY | 2025-07-22 11:51 | XMS REPORT | Continuity of Care Document ---
Author Name Unknown Address [address] [facility] [address] [place] [address] Organization [facility] [place] Address [address] [facility] [address] [place] [address] Care Team Providers Care Bss Solution Architect Name Role Phone uSkhwinder Patel Primary Care Physician [phone] Sukhwinder Patel Attending Clinician Unavailable Aman RICHARD, Anabel Attending Clinician [phone] Viki Monaco MD Attending Clinician [phone] ANABEL NEWTON Attending Clinician Unavailab le Payers Payer Name Policy Type Policy Number Effective Date Expirati on Date Source HUMAN MEDICARE 53 [id number] 2022 00:00:00 [facility] Cigna Preferred Medicare (HMO) 53 [id number] 2022 00:00:00 [facility] HUMANA MEDICARE C1 [id number] 2020 00:00:00 [facility] HUMANA MEDICARE C1 [id number] 2020 00:00:00 [facility] HUMANA MEDICARE C1 [id number] 2020 00:00:00 [facility] HUMANA MEDICARE C1 [id number] 2020 00:00:00 [facility] HUMANA MEDICARE C1 [id number] 2020 00:00:00 [facility] HUMANA MEDICARE C1 [id number] 2020 00:00:00 [facility] HUMANA MEDICARE C1 [id number] 2020 00:00:00 [facility] HUMANA MEDICARE C1 [id number] 2020 00:00:00 [facility] HUMANA MEDICARE C1 [id number] 2020 00:00:00 [facility] HUMANA MEDICARE C1 [id number] 2020 00:00:00 [facility] HUMANA MEDICARE C1 [id number] 2020 00:00:00 [facility] HUMANA MEDICARE C1 [id number] 2020 00:00:00 [facility] HUMANA MEDICARE C1 [id number] 2020 00:00:00 [facility] HUMANA MEDICARE C1 [id number] 2020 00:00:00 [facility] HUMANA MEDICARE C1 [id number] 2020 00:00:00 [facility] Problems Condition Name Condition Details Condition Category Status Onset Date Resolution Date Last Treatment Date Treating Clinician Comments Source 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 2022-11 00:00: 00 [facility] Squamous cell carcinoma of ear, right Squamous cell carcinoma of ear, right Disease Active 2022-11 00:00: 00 [facility] Decreased hearing Decreased hearing Problem [facility] [id number] Hypercalce leida Problem [facility] Decreased vision Decreased vision Problem [facility] Skin cancer Skin cancer Problem [facility] Benign neoplasm of pelvic bones, 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, sacrum and coccyx Problem [facility] 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 Problem [facility] 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 Problem [facility] [id number] Basal cell carcinoma (BCC), unspecifie d site Problem [facility] [id number] Mixed hyperlipid emia Problem [facility] [id number] Essential (primary) hypertensi on Problem [facility] [id number] Tobacco use disorder, continuous Problem [facility] [id number] 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 Problem [facility] [id number] Exposure to asbestos Problem [facility] [id number] Chronic obstructiv e pulmonary disease, unspecifie d COPD type Problem [facility] Allergies, Adverse Reactions, Alerts Allergy Name Allergy Type Status Severity Reaction(s) Onset Date Inactive Date Treating Clinician Comments Source Codeine Allergy to substanc e Active Unknown 12-04 00:00: 00 [facility] 235 Drug allergy Active nausea and vomiting [facility] Social History Social Habit Start Date Stop Date Quantity Comments Source History of tobacco use Cigarette Smoker [facility] Sexual orientation U [facility] Alcoholic beverage intake 2023-12-04 00:00:00 2023-12-04 00:00:00 Ex-drinker (finding) [facility] History of Social function 2023-10-29 00:00:00 2023-10-29 00:00:00 [facility] Alcohol intake 2023-10-13 00:00:00 2023-10-13 00:00:00 Ex-drinker (finding) [facility] Cigarettes smoked current (pack per day) - Reported 2023-10-06 00:00:00 2023-10-06 00:00:00 [facility] Sex assigned at 1950 00:00:00 1950 00:00:00 [facility] Smoking Status Start Date Stop Date Source Smokes tobacco daily 2023-10-29 00:00:00 [facility] Medications Ordered Medication Name Filled Medication Name Start Date Stop Date Current Medication? Ordering Clinician Indication Dosage Frequency Signature (SIG) Comments Components Source lisinopril 10 MG tablet 11-08 00:00: 00 Yes 10mg QD Take 10 mg by mouth 1 (one) time each day. [facility] amLODIPine (Norvasc) 5 MG tablet 2022-11 10:09: 07 Yes 5mg Take 5 mg by mouth 1 (one) time each day at the same time. [facility] atorvastati n (Lipitor) 20 MG tablet 2022-11 10:09: 07 Yes 20mg QD Take 20 mg by mouth 1 (one) time each day. [facility] mupirocin (Bactroban) 2 % ointment 01-01 00:00: 00 Yes 1{appli cation} QD Apply 1 applicatio n topically 1 (one) time each day. [facility] Kenalog (Triamcinol one) Kenalog (Triamcinol one) 12-02 00:00: 00 No 40mg [facility] Lisinopril 10 MG Lisinopril 10 MG No 1{table t} QD Lisinopril 10 MG atorvastati n 20mg atorvastati n 20mg No 1{capsu le} QD atorvastat in 20mg Trelegy Ellipta 100-62.5-25 MCG/ACT Trelegy Ellipta 100-62.5-25 MCG/ACT No Trelegy Ellipta 100-62.5-2 5 MCG/ACT amLODIPine Besylate 10 MG amLODIPine Besylate 10 MG No 1{table t} QD amLODIPine Besylate 10 MG Immunizations Ordered Immunization Name Filled Immunization Name Date Status Comments Source FluAD FluAD 2021-09-28 14:12:00 Completed [facility] FluAD FluAD 2021-09-28 14:12:00 Completed [facility] FluAD FluAD 2021-09-28 14:12:00 Completed [facility] FluAD FluAD 2021-09-28 14:12:00 Completed [facility] FluAD FluAD 2021-09-28 14:12:00 Completed [facility] FluAD FluAD 2021-09-28 14:12:00 Completed [facility] FluAD FluAD 2021-09-28 14:12:00 Completed [facility] FluAD FluAD 2021-09-28 14:12:00 Completed [facility] FluAD FluAD 2021-09-28 14:12:00 Completed [facility] FluAD FluAD 2021-09-28 14:12:00 Completed [facility] FluAD FluAD 2021-09-28 14:12:00 Completed [facility] FluAD FluAD Unknown Completed [facility] FluAD FluAD Unknown Completed [facility] FluAD FluAD Unknown Completed [facility] FluAD FluAD Unknown Completed [facility] FluAD FluAD Unknown Completed [facility] FluAD FluAD Unknown Completed [facility] FluAD FluAD Unknown Completed [facility] FluAD FluAD Unknown Completed [facility] FluAD FluAD Unknown Completed [facility] FluAD FluAD Unknown Completed [facility] FluAD FluAD Unknown Completed [facility] FluAD FluAD Unknown Completed [facility] FluAD FluAD Unknown Completed [facility] FluAD FluAD Unknown Completed [facility] FluAD FluAD Unknown Completed [facility] FluAD FluAD Unknown Completed [facility] FluAD FluAD Unknown Completed [facility] FluAD FluAD Unknown Completed [facility] FluAD FluAD Unknown Completed [facility] FluAD FluAD Unknown Completed [facility] FluAD FluAD Unknown Completed [facility] FluAD FluAD Unknown Completed [facility] Vital Signs Vital Name Observation Time Observation Value Comments S cornelio height 2024-09-08 09:45:00 72 [in_i] Commo n [facility] weight 2024-09-08 09:45:00 158.6 [lb_av] Co [facility] temperature 2024-09-08 09:45:00 98.5 [degF] Com [facility] bmi 2024-09-08 09:45:00 21.51 kg/m2 Comm on [facility] oximetry 2024-09-08 09:45:00 97 % Commo n [facility] blood pressure systolic 2024-09-08 09:45:00 132 mm[Hg] [facility] blood pressure diastolic 2024-09-08 09:45:00 84 mm[Hg] [facility] height 2024-01-27 13:50:00 72 [in_i] Commo n [facility] weight 2024-01-27 13:50:00 171.6 [lb_av] Co [facility] temperature 2024-01-27 13:50:00 97.7 [degF] Com [facility] bmi 2024-01-27 13:50:00 23.27 kg/m2 Comm on [facility] oximetry 2024-01-27 13:50:00 98 % Commo n [facility] respiratory rate 2024-01-27 13:50:00 18 /min [facility] blood pressure systolic 2024-01-27 13:50:00 139 mm[Hg] [facility] blood pressure diastolic 2024-01-27 13:50:00 82 mm[Hg] [facility] Systolic blood pressure 2023-12-04 17:11:00 171 mm[Hg] [facility] Diastolic blood pressure 2023-12-04 17:11:00 91 mm[Hg] [facility] Heart rate 2023-12-04 17:11:00 68 /min [facility] temperature 2023-12-04 17:11:00 36.61 Mony [facility] Body height 2023-12-04 17:11:00 182.9 cm [facility] 2023-12-04 17:11:00 [facility]472 [facility] BMI 2023-12-04 17:11:00 23.46 kg/m2 [facility] Sy[facility] blood pressure 2023-10-29 14:05:00 165 mm[Hg] [facility] Diastolic blood pressure 2023-10-29 14:05:00 104 mm[Hg] [facility] Heart rate 2023-10-29 14:05:00 65 /min [facility] temperature 2023-10-29 14:05:00 36.11 Mony [facility] Systolic blood pressure 2023-10-13 14:25:00 183 mm[Hg] [facility] Diastolic blood pressure 2023-10-13 14:25:00 102 mm[Hg] [facility] Heart rate 2023-10-13 14:25:00 88 /min [facility] Systolic blood pressure 2023-10-06 14:22:00 132 mm[Hg] [facility] Diastolic blood pressure 2023-10-06 14:22:00 83 mm[Hg] [facility] Heart rate 2023-10-06 14:22:00 68 /min [facility] Systolic blood pressure 2023-09-01 15:06:00 158 mm[Hg] [facility] Diastolic blood pressure 2023-09-01 15:06:00 100 mm[Hg] [facility] Heart rate 2023-09-01 15:06:00 88 /min [facility] temperature 2023-09-01 15:06:00 36.22 Mony [facility] Systolic blood pressure 2023-09-01 15:06:00 158 mm[Hg] [facility] Diastolic blood pressure 2023-09-01 15:06:00 100 mm[Hg] [facility] Heart rate 2023-09-01 15:06:00 88 /min [facility] temperature 2023-09-01 15:06:00 36.22 Mony [facility] Systolic blood pressure 2023-08-21 18:12:00 155 mm[Hg] [facility] Diastolic blood pressure 2023-08-21 18:12:00 94 mm[Hg] [facility] Heart rate 2023-08-21 18:12:00 75 /min [facility] temperature 2023-08-21 18:12:00 36.61 Mony [facility] Body weight 2023-08-21 18:12:00 [facility]398 [facility] 2023-07-23 10:30:00 72 [in_i] Commo n [facility] weight 2023-07-23 10:30:00 153.0 [lb_av] Co [facility] temperature 2023-07-23 10:30:00 98.2 [degF] Com [facility] bmi 2023-07-23 10:30:00 20.75 kg/m2 Comm on [facility] oximetry 2023-07-23 10:30:00 96 % Commo n [facility] respiratory rate 2023-07-23 10:30:00 17 /min [facility] blood pressure systolic 2023-07-23 10:30:00 127 mm[Hg] [facility] blood pressure diastolic 2023-07-23 10:30:00 70 mm[Hg] [facility] height 2023-01-06 14:50:00 72 [in_i] Commo n [facility] weight 2023-01-06 14:50:00 158.8 [lb_av] Co mmon [facility] temperature 2023-01-06 14:50:00 98.2 [degF] Com [facility] bmi 2023-01-06 14:50:00 21.53 kg/m2 Comm on [facility] oximetry 2023-01-06 14:50:00 97 % Commo n [facility] respiratory rate 2023-01-06 14:50:00 16 /min [facility] blood pressure systolic 2023-01-06 14:50:00 140 mm[Hg] [facility] pressure diastolic 2023-01-06 14:50:00 72 mm[Hg] [facility] height 2022-12-09 15:40:00 72 [in_i] Commo n [facility] weight 2022-12-09 15:40:00 164 [lb_av] Comm on [facility] temperature 2022-12-09 15:40:00 97.4 [degF] Com mon [facility] bmi 2022-12-09 15:40:00 22.24 kg/m2 Comm on [facility] oximetry 2022-12-09 15:40:00 97 % Commo n [facility] respiratory rate 2022-12-09 15:40:00 16 /min [facility] blood pressure systolic 2022-12-09 15:40:00 142 mm[Hg] [facility] blood pressure diastolic 2022-12-09 15:40:00 78 mm[Hg] [facility] height 2022-12-02 13:20:00 72 [in_i] Commo n [facility] weight 2022-12-02 13:20:00 158.9 [lb_av] Co mmon [facility] temperature 2022-12-02 13:20:00 98.1 [degF] Com mon [facility] bmi 2022-12-02 13:20:00 21.55 kg/m2 Comm on [facility] oximetry 2022-12-02 13:20:00 97 % Commo n [facility] respiratory rate 2022-12-02 13:20:00 17 /min [facility] blood pressure systolic 2022-12-02 13:20:00 138 mm[Hg] [facility] blood pressure diastolic 2022-12-02 13:20:00 85 mm[Hg] [facility] height 2022-10-08 14:50:00 72 [in_i] Commo n [facility] weight 2022-10-08 14:50:00 158.3 [lb_av] Co mmon [facility] temperature 2022-10-08 14:50:00 98.5 [degF] Com mon [facility] bmi 2022-10-08 14:50:00 21.47 kg/m2 Comm on [facility] oximetry 2022-10-08 14:50:00 96 % Commo n [facility] respiratory rate 2022-10-08 14:50:00 16 /min [facility] blood pressure systolic 2022-10-08 14:50:00 152 mm[Hg] [facility] blood pressure diastolic 2022-10-08 14:50:00 87 mm[Hg] Common [facility] height 2022-05-03 09:40:00 72 [in_i] Commo n [facility] weight 2022-05-03 09:40:00 166.6 [lb_av] Co on [facility] temperature 2022-05-03 09:40:00 98.1 [degF] Com mon [facility] bmi 2022-05-03 09:40:00 22.59 kg/m2 Comm on [facility] oximetry 2022-05-03 09:40:00 95 % Commo n [facility] respiratory rate 2022-05-03 09:40:00 17 /min [facility] blood pressure systolic 2022-05-03 09:40:00 142 mm[Hg] [facility] blood pressure diastolic 2022-05-03 09:40:00 78 mm[Hg] [facility] height 2021-10-03 14:10:00 72 [in_i] Commo n [facility] weight 2021-10-03 14:10:00 190.7 [lb_av] Co mmon [facility] temperature 2021-10-03 14:10:00 98.0 [degF] Com [facility] bmi 2021-10-03 14:10:00 25.86 kg/m2 Comm on [facility] oximetry 2021-10-03 14:10:00 97 % Commo n [facility] respiratory rate 2021-10-03 14:10:00 16 /min [facility] blood pressure systolic 2021-10-03 14:10:00 138 mm[Hg] [facility] blood pressure diastolic 2021-10-03 14:10:00 81 mm[Hg] [facility] height 2021-08-31 10:40:00 72 [in_i] Commo n [facility] weight 2021-08-31 10:40:00 189.7 [lb_av] Co mmon [facility] temperature 2021-08-31 10:40:00 97.9 [degF] Com [facility] bmi 2021-08-31 10:40:00 25.73 kg/m2 Comm on [facility] oximetry 2021-08-31 10:40:00 98 % Commo n [facility] respiratory rate 2021-08-31 10:40:00 17 /min [facility] blood pressure systolic 2021-08-31 10:40:00 131 mm[Hg] [facility] [place] pressure diastolic 2021-08-31 10:40:00 72 mm[Hg] Common [facility] height 2021-06-19 09:50:00 Commo n [facility] weight 2021-06-19 09:50:00 186.4 [lb_av] Co mmon [facility] temperature 2021-06-19 09:50:00 98.4 [degF] Com mon [facility] bmi 2021-06-19 09:50:00 25.28 kg/m2 Comm on [facility] oximetry 2021-06-19 09:50:00 97 % Commo n [facility] respiratory rate 2021-06-19 09:50:00 17 /min [facility] blood pressure systolic 2021-06-19 09:50:00 138 mm[Hg] [facility] blood pressure diastolic 2021-06-19 09:50:00 76 mm[Hg] [facility] respiratory rate 2021-05-31 13:20:00 16 /min [facility] blood pressure systolic 2021-05-31 13:20:00 135 mm[Hg] [facility] blood pressure diastolic 2021-05-31 13:20:00 75 mm[Hg] [facility] height 2021-05-31 13:20:00 Commo n [facility] weight 2021-05-31 13:20:00 186.2 [lb_av] Co mmon [facility] temperature 2021-05-31 13:20:00 98.2 [degF] Com [facility] bmi 2021-05-31 13:20:00 25.25 kg/m2 Comm on [facility] oximetry 2021-05-31 13:20:00 95 % Commo n [facility] Encounters Start Date/Time End Date/Time Encounter Type Admission Type Attending Clinicians Care Facility Care Department Encounter ID Source 2024-10-15 15:16[facility] [id number] 2024-09-07 09:14:00 [facility] [id number] [facility] 2024-03-02 13:44:00 Outpatient , Sukhwinder STLMLC ST[facility] [id number] [facility] 2024-01-23 14:27:00 Outpatient , Sukhwinder STLMLC ST[facility] [id number] [facility] 2023-11-14 11:29:01 Outpatient , Sukhwinder STLMLC STLML[facility] [id number] [facility] 2023-07-23 08:22:00 Outpatient , Sukhwinder STLMLC STL[facility] [id number] [facility] 2023-07-16 14:33:01 Outpatient , Sukhwinder STLMLC STLMLC [id number] [facility] 2023-07-15 11:24:00 Outpatient , Sukhwinder STLMLC STLMLC [id number] [facility] 2022-12-05 08:06:01 Outpatient , Sukhwinder STLMLC STL[facility] [id number] [facility] 2022-10-10 15:30:02 Outpatient , Sukhwinder STLMLC STLMLC [id number] [facility] 2022-10-04 11:36:01 Outpatient , Sukhwinder STLMLC STLMLC [id number] [facility] 2022-05-21 12:34:01 Outpatient , Sukhwinder STLMLC STLMLC [id number] [facility] 2022-05-20 15:42:02 Outpatient , Sukhwinder STLMLC STLMLC [id number] [facility] 2022-04-18 12:35:01 Outpatient , Sukhwinder STLMLC STLMLC [id number] [facility] 2022-04-16 13:46:03 Outpatient , Sukhwinder STLMLC STLMLC [id number] [facility] 2021-12-19 13:20:01 Outpatient , Sukhwinder STLC STLMLC [id number] [facility] 2021-12-10 11:24:02 Outpatient , Sukhwinder STLC STLMLC [id number] [facility] 2021-11-30 11:49:01 Outpatient , Sukhwinder STLC STLMLC [id number] [facility] 2021-11-28 14:06:07 Outpatient , Sukhwinder STLC STLMLC [id number] [facility] 2021-11-28 13:56:16 Outpatient , Sukhwinder STLC STLMLC [id number] [facility] 2021-11-28 13:54:06 Outpatient , Sukhwinder STLC STLMLC [id number] [facility] 2021-11-28 13:32:10 Outpatient , Sukhwinder STLC STLMLC [id number] [facility] 2021-11-28 13:29:17 Outpatient , Sukhwinder STLC STLC [id number] [facility] 2021-11-28 13:24:15 Outpatient , Sukhwinder STLC STLMLC [id number] [facility] 2021-11-28 13:05:42 Outpatient , Sukhwinder STLC STLMLC [id number] [facility] 2021-11-28 13:01:22 Outpatient , Sukhwinder STLC STLMLC [id number] [facility] 2024-10-15 00:00:00 2024-10-15 00:00:00 (TEL) STLMLC STLMLC [id number] [facility] 2024-09-15 00:00:00 2024-09-15 00:00:00 (TEL) STLMLC STLMLC [id number] [facility] 2024-09-08 00:00:00 2024-09-08 00:00:00 OFFICE VISIT ESTAB PT LEVEL 4 STLMLC STLMLC [id number] [facility] 2024-09-01 00:00:00 2024-09-01 00:00:00 (TEL) STLMLC STLMLC [id number] [facility] 2024-08-30 00:00:00 2024-08-30 00:00:00 (TEL) STLMLC STLMLC [id number] [facility] 2024-07-14 00:00:00 2024-07-14 00:00:00 (TEL) STLMLC STLMLC [id number] [facility] 2024-07-08 00:00:00 2024-07-08 00:00:00 (TEL) STLMLC STLMLC [id number] [facility] 2024-02-02 00:00:00 2024-02-02 00:00:00 (TEL) STLMLC STLMLC [id number] [facility] 2024-02-02 00:00:00 2024-02-02 00:00:00 (TEL) STLMLC STLMLC [id number] [facility] 2024-01-28 00:00:00 2024-01-28 00:00:00 (TEL) STLMLC STLMLC [id number] [facility] 2024-01-27 00:00:00 2024-01-27 00:00:00 OFFICE VISIT ESTAB PT LEVEL 4 STLMLC STLMLC [id number] [facility] 2024-01-20 00:00:00 2024-01-20 00:00:00 (TEL) STLMLC STLMLC [id number] [facility] 2023-12-04 10:00:00 2023-12-04 11:30:33 Office Visit Anabel [facility] [id number] [facility] 2023-11-19 00:00:00 2023-11-19 00:00:00 ([facility]EL) [facility] [id number] [facility] 2023-11-14 00:00:00 2023-11-14 00:00:00 (TEL) STLC STLC [id number] [facility] 2023-11-14 00:00:00 2023-11-14 00:00:00 (TEL) STLC STLC [id number] [facility] 2023-10-31 00:00:00 2023-10-31 00:00:00 (TEL) [facility] [id number] [facility] 2023-10-29 08:00:00 2023-10-29 08:26:02 Office Visit Elaine Monacorm [facility] [address] [id number] [facility] 2023-10-13 08:00:00 2023-10-13 09:31:44 Office Visit Viki Monaco [facility] [address] [id number] [facility] 2023-10-06 08:15:00 2023-10-06 08:50:47 Office Visit Viki Monaco [facility] [address] [id number] [facility] 2023-09-29 22:21:00 2023-09-30 15:30:00 Outpatient ANABEL [facility] [id number] [address] [place] [address] 2023-09-29 10:30:00 2023-09-29 10:30:00 Outpatient ANABEL [facility] [id number] [facility] 2023-09-18 00:00:00 2023-09-18 00:00:00 (TEL) STLMLC STLMLC [id number] [facility] 2023-09-01 10:30:00 2023-09-01 14:19:11 Office Visit KadeElaine garcíarm [facility] [address] [id number] [facility] 2023-08-27 00:00:00 2023-08-27 00:00:00 (TEL) STLMLC STLMLC [id number] [facility] 2023-08-21 13:30:00 2023-08-21 13:52:37 Office Visit Anabel [facility] [facility] AND WOMENS [id number] [facility] 2023-08-18 00:00:00 2023-08-18 00:00:00 (TEL) STLMLC STLMLC [id number] [facility] 2023-08-06 00:00:00 2023-08-06 00:00:00 (TEL) STLMLC STLMLC [id number] [facility] 2023-08-04 00:00:00 2023-08-04 00:00:00 (TEL) STLMLC STLMLC [id number] [facility] 2023-08-04 00:00:00 2023-08-04 00:00:00 (TEL) STLMLC STLMLC [id number] [facility] 2023-07-23 00:00:00 2023-07-23 00:00:00 OFFICE VISIT ESTAB PT LEVEL 4 STLMLC STLMLC [id number] [facility] 2023-07-21 00:00:00 2023-07-21 00:00:00 (TEL) STLMLC STLMLC [id number] [facility] 2023-07-15 00:00:00 2023-07-15 00:00:00 (TEL) STLMLC STLMLC [id number] [facility] 2023-01-06 00:00:00 2023-01-06 00:00:00 OFFICE VISIT ESTAB PT LEVEL 4 STLMLC STLMLC [id number] [facility] 2022-12-13 00:00:00 2022-12-13 00:00:00 (TEL) STLMLC STLMLC [id number] [facility] 2022-12-12 00:00:00 2022-12-12 00:00:00 (TEL) STLMLC STLMLC [id number] [facility] 2022-12-09 00:00:00 2022-12-09 00:00:00 OFFICE VISIT ESTAB PT LEVEL 3 STLMLC STLMLC [id number] [facility] 2022-12-02 00:00:00 2022-12-02 00:00:00 OFFICE VISIT EST PT LEVEL 3 STLMLC STLMLC [id number] [facility] 2022-11-29 00:00:00 2022-11-29 00:00:00 (TEL) STLMLC STLMLC [id number] [facility] 2022-11-08 00:00:00 2022-11-08 00:00:00 (TEL) STLMLC STLMLC [id number] [facility] 2022-11-01 00:00:00 2022-11-01 00:00:00 (TEL) STLMLC STLMLC [id number] [facility] 2022-10-17 00:00:00 2022-10-17 00:00:00 (TEL) STLMLC STLMLC [id number] [facility] 2022-10-10 00:00:00 2022-10-10 00:00:00 (TEL) STLMLC STLMLC [id number] [facility] 2022-10-08 00:00:00 2022-10-08 00:00:00 OFFICE VISIT ESTAB PT LEVEL 4 STLMLC STLMLC [id number] [facility] 2022-05-20 00:00:00 2022-05-20 00:00:00 (TEL) STLMLC STLMLC [id number] [facility] 2022-05-03 00:00:00 2022-05-03 00:00:00 OFFICE VISIT ESTAB PT LEVEL 4 STLMLC STLMLC [id number] [facility] 2022-04-16 00:00:00 2022-04-16 00:00:00 (TEL) STLMLC STLMLC [id number] [facility] 2021-12-07 00:00:00 2021-12-07 00:00:00 (TEL) STLMLC STLMLC [id number] [facility] 2021-12-06 00:00:00 2021-12-06 00:00:00 (TEL) STLMLC STLMLC [id number] [facility] 2021-11-30 00:00:00 2021-11-30 00:00:00 (TEL) STLMLC STLMLC [id number] [facility] 2021-10-03 00:00:00 2021-10-03 00:00:00 (TEL) STLMLC STLMLC [id number] [facility] 2021-10-03 00:00:00 2021-10-03 00:00:00 OFFICE VISIT EST PT LEVEL 3 STLMLC STLMLC [id number] [facility] 2021-10-01 00:00:00 2021-10-01 00:00:00 (TEL) STLMLC STLMLC [id number] [facility] 2021-09-12 00:00:00 2021-09-12 00:00:00 (TEL) STLMLC STLMLC [id number] [facility] 2021-08-31 00:00:00 2021-08-31 00:00:00 OFFICE VISIT ESTAB PT LEVEL 4 STLMLC STLMLC [id number] [facility] 2021-08-20 00:00:00 2021-08-20 00:00:00 (TEL) STLMLC STLMLC [id number] [facility] 2021-08-06 00:00:00 2021-08-06 00:00:00 (TEL) STLMLC STLMLC [id number] [facility] 2021-08-03 00:00:00 2021-08-03 00:00:00 (TEL) STLMLC STLMLC [id number] [facility] 2021-07-31 00:00:00 2021-07-31 00:00:00 (TEL) STLMLC STLMLC [id number] [facility] 2021-07-26 00:00:00 2021-07-26 00:00:00 (TEL) STLMLC STLMLC [id number] [facility] 2021-07-05 00:00:00 2021-07-05 00:00:00 (TEL) STLMLC STLMLC [id number] [facility] 2021-06-19 00:00:00 2021-06-19 00:00:00 OFFICE VISIT EST PT LEVEL 3 STLMLC STLMLC [id number] [facility] 2021-06-18 00:00:00 2021-06-18 00:00:00 (TEL) STLMLC STLMLC [id number] [facility] 2021-05-31 00:00:00 2021-05-31 00:00:00 OFFICE VISIT ESTAB PT LEVEL 4 STLMLC STLMLC [id number] [facility] 2021-05-23 00:00:00 2021-05-23 00:00:00 (TEL) STLMLC STLMLC [id number] [facility] 2021-05-14 00:00:00 2021-05-14 00:00:00 Outpatient STLMLC STLMLC [id number] [facility] 2021-05-14 00:00:00 2021-05-14 00:00:00 Outpatient STLMLC STLMLC [id number] [facility] 2021-05-14 00:00:00 2021-05-14 00:00:00 Outpatient STLMLC STLMLC [id number] [facility] 2021-04-24 00:00:00 2021-04-24 00:00:00 Outpatient STLMLC STLMLC [id number] [facility] 2021-04-10 00:00:00 2021-04-10 00:00:00 Outpatient STLMLC STLMLC [id number] [facility] 2021-03-12 00:00:00 2021-03-12 00:00:00 Outpatient STLMLC STLMLC [id number] [facility] Results Test Description Test Time Test Comments Results Result Co mments Source CBC W/AUTO [id number] 00:00:00* Test Item Value Reference Range Interpretation Comme nts NUCLEATED RBCS (test code = 03369-0) 0.0 /100 WBC'S See_Comment [Automated messa ge] The system which generated this result transmitted reference range: 0.0 /100 WBC'S. The reference range was not used to interpret this result as normal/abnormal. ABSOLUTE EOSINOPHILS (test code = 51217-8) 0.16 K/UL See_Comment [Automated messa ge] The system which generated this result transmitted reference range: 0.00-0.50 K/UL. The reference range was not used to interpret this result as normal/abnormal. ABSOLUTE LYMPHOCYTES (test code = 03015-5) 1.16 K/UL See_Comment [Automated messa ge] The system which generated this result transmitted reference range: 1.00-4.00 K/UL. The reference range was not used to interpret this result as normal/abnormal. ABSOLUTE MONOCYTES (test code = 92400-8) 0.84 K/UL See_Comment [Automated messa ge] The system which generated this result transmitted reference range: 0.20-1.00 K/UL. The reference range was not used to interpret this result as normal/abnormal. ABSOLUTE NEUTROPHILS (test code = 00182-2) 8.12 K/UL See_Comment H [Automated messa ge] The system which generated this result transmitted reference range: 1.50-7.50 K/UL. The reference range was not used to interpret this result as normal/abnormal. BASOPHILS (test code = 89570-8) 0.6 % EOSINOPHILS (test code = 00710-7) 1.5 % HEMATOCRIT (test code = 13438-0) 41.2 % See_Comment [Automated messa ge] The system which generated this result transmitted reference range: 40.0-51.0 %. The reference range was not used to interpret this result as normal/abnormal. HEMOGLOBIN (test code = 718-7) 13.5 G/DL See_Comment [Automated messa ge] The system which generated this result transmitted reference range: 13.5-17.0 G/DL. The reference range was not used to interpret this result as normal/abnormal. LYMPHOCYTES (test code = 48238-4) 11.2 % MCH (test code = 77309-8) 31.0 PG See_Comment [Automated messa ge] The system which generated this result transmitted reference range: 25.0-33.0 PG. The reference range was not used to interpret this result as normal/abnormal. MCHC (test code = 15164-2) 32.8 G/DL See_Comment [Automated messa ge] The system which generated this result transmitted reference range: 31.0-36.0 G/DL. The reference range was not used to interpret this result as normal/abnormal. MCV (test code = 01025-3) 94.7 fL See_Comment [Automated messa ge] The system which generated this result transmitted reference range: 80.0-99.0 fL. The reference range was not used to interpret this result as normal/abnormal. MONOCYTES (test code = 61644-0) 8.1 % NEUTROPHILS (test code = 14236-9) 78.4 % PLATELET COUNT (test code = 75995-8) 281 K/UL See_Comment [Automated messa ge] The system which generated this result transmitted reference range: 130-400 K/UL. The reference range was not used to interpret this result as normal/abnormal. RBC (test code = 46484-5) 4.35 M/UL See_Comment L [Automated messa ge] The system which generated this result transmitted reference range: 4.50-6.10 M/UL. The reference range was not used to interpret this result as normal/abnormal. RDW (test code = 64845-7) 12.9 % See_Comment [Automated messa ge] The system which generated this result transmitted reference range: 11.5-15.0 %. The reference range was not used to interpret this result as normal/abnormal. WBC (test code = 76950-3) 10.4 K/UL See_Comment [Automated messa ge] The system which generated this result transmitted reference range: 3.5-11.0 K/UL. The reference range was not used to interpret this result as normal/abnormal. Lipid Panel With LDL/HDL [id number] 00:00:00* Test Item Value Reference Range Interpretation Comme nts Cholesterol, Total (test code = 2093-3) 96 mg/dL See_Comment L [Automated messa ge] The system which generated this result transmitted reference range: 100-199 mg/dL. The reference range was not used to interpret this result as normal/abnormal. Triglycerides (test code = 2571-8) 56 mg/dL See_Comment [Automated messa ge] The system which generated this result transmitted reference range: 0-149 mg/dL. The reference range was not used to interpret this result as normal/abnormal. HDL Cholesterol (test code = 2085-9) 50 mg/dL See_Comment [Automated messa ge] The system which generated this result transmitted reference range: >39 mg/dL. The reference range was not used to interpret this result as normal/abnormal.
[2025-07-22] MEDS ORDERED: CEPHALEXIN 250 MG CAP ONE (12:22)
[2025-07-22] MEDS ORDERED: SMZ./TMP. 800/160 MG TABLET ONE (12:23)
--- NOTE | 2025-07-22 13:06 | EDPHYS ---
Physician Documentation [facility] Name: Remy Irwin Age: 74 yrs Sex: Male : 1950 Arrival Date: 07/22/2025 Time: 11:46 Bed 11 Private MD: ED Physician Cy Reid HPI: 07/22 18:27 This 74 yrs old Male presents to ER via Ambulatory with complaints of Rash. dr5 18:27 The patient's rash thought to be caused by. Onset: The symptoms/episode began/occurred dr5 2 week(s) ago. Patient is a 74-year-old male with history of CAD, COPD, hypertension skin cancer, coming in with left sided redness and swelling has been going on for couple months. Patient reports he is from [place] and would like antibiotics. Patient denies fever, chest pain, shortness of breath. Historical: - Allergies: 11:57 Codeine; ll1 - PMHx: 11:57 Angina; asbestosis; CAD; COPD; Hypertension; skin ca; ll1 - PSHx: 11:57 skin CA removed (skin ca); ll1 - Immunization history:: Adult Immunizations up to date. - Infectious Disease History:: Denies. - Social history:: Smoking status: Patient reports the use of cigarette tobacco products, smokes one-half pack cigarettes per day. ROS: 18:27 Constitutional: as per hpi dr5 Exam: 18:27 Constitutional: This is a well developed, well nourished patient who is awake, alert, dr5 and in no acute distress. Head/Face: Normocephalic, atraumatic. Eyes: Pupils equal round and reactive to light, extra-ocular motions intact. Lids and lashes normal. Conjunctiva and sclera are non-icteric and not injected. Cornea within normal limits. Periorbital areas with no swelling, redness, or edema. Neck: Trachea midline, no thyromegaly or masses palpated, and no cervical lymphadenopathy. Supple, full range of motion without nuchal rigidity, or vertebral point tenderness. No Meningismus. Chest/axilla: Normal chest wall appearance and motion. Nontender with no deformity. No lesions are appreciated. Cardiovascular: Regular rate and rhythm with a normal S1 and S2. Normal PMI, no JVD. No pulse deficits. Respiratory: Lungs have equal breath sounds bilaterally, clear to auscultation. No rales, rhonchi or wheezes noted. No increased work of breathing, no retractions or nasal flaring. Back: No spinal tenderness. No costovertebral tenderness. Full range of motion. Skin: Warm, dry with normal turgor. Normal color with no rashes, no lesions,. Redness and swelling noted to left lower quadrant with mild tenderness to palpation MS/ Extremity: Pulses equal, no cyanosis. Neurovascular intact. Full, normal range of motion. Neuro: Awake and alert, GCS 15, oriented to person, place, time, and situation. Cranial nerves II-XII grossly intact. Motor strength 5/5 in all extremities. Sensory grossly intact. Cerebellar exam normal. Normal gait. Vital Signs: 11:58 BP 135 / 73; Pulse 67; Resp 17; Temp 97.6; Pulse Ox 100% ; Weight 75.3 kg; Height 6 ft. ll1 0 in. ; Pain 2/10; 11:58 Body Mass Index 22.51 (75.30 kg, 182.88 cm) ll1 11:58 Pain Scale: Adult ll1 MDM: 11:50 Medical Screening Exam initiated dr5 18:27 Differential diagnosis: impetigo, Cellulitis, abscess. Data reviewed: vital signs, dr5 nurses notes. Consideration of Admission/Observation Escalation of care including admission/observation considered. Escalation considered patient found to have abscess formation. I considered the following discharge prescriptions or medication management in the emergency department I discussed and recommended Over The Counter medications, Medications were administered in the Emergency Department. See MAR. Care significantly affected by the following chronic conditions: Angina, CAD, COPD, hypertension, skin cancer. Care significantly affected by the following Social Determinants of Health: Poor access to healthcare and/or lack of insurance, Poor access to transportation, Problems related to employment. Counseling: I had a detailed discussion with the patient and/or guardian regarding the historical points, exam findings, and any diagnostic results supporting the discharge/admit diagnosis, the presence of at least one elevated blood pressure reading (>120/80) during this emergency department visit, the need for outpatient follow up, for definitive care, a family practitioner, to return to the emergency department if symptoms worsen or persist or if there are any questions or concerns that arise at home. Medication response: Bactrim, Keflex. Response to treatment: the patient's symptoms have mildly improved after treatment. Special discussion: I discussed with the patient/guardian in detail that at this point there is no indication for admission to the hospital. It is understood, however, that if the symptoms persist or worsen the patient needs to return immediately for re-evaluation. Based on the history and exam findings, there is no indication for further emergent testing or inpatient evaluation. I discussed with the patient/guardian the need to see the primary care provider for further evaluation of the symptoms. ED course: Will continue patient on antibiotics and have patient follow primary care doctor for cellulitis. All questions. Strict ER precautions given. Patient is agreeable to plan.. Administered Medications: 12:26 Drug: Cephalexin PO 500 mg PO once Route: PO; dd2 12:26 Follow up: Response: No adverse reaction ll1 13:34 Follow up: Response: No adverse reaction ll1 12:26 Drug: Trimethoprim-Sulfamethoxazole PO (160 mg-800 mg (DS) 1 tablet PO once Route: PO; dd2 13:10 Follow up: Response: No adverse reaction ll1 Disposition: 18:55 I was immediately available on-site in the Emergency Department for consultation in the ms3 care of the patient. Disposition Summary: 07/22/25 13:06 Discharge Ordered Notes: Location: Home dr5 Condition: Stable dr5 Diagnosis - Cellulitis of abdominal wall - left lower abdomen dr5 Followup: dr5 - With: Emergency Department - When: As needed - Reason: Worsening of condition Followup: dr5 - With: Private Physician - When: 1 - 2 days - Reason: Recheck today's complaints, Continuance of care, Re-evaluation by your physician Discharge Instructions: - Discharge Summary Sheet dr5 - Cellulitis, Adult dr5 Forms: - Medication Reconciliation Form dr5 - Antibiotic Education dr5 - Patient Portal Instructions dr5 - Leadership Thank You Letter dr5 Prescriptions: - Cephalexin 500 mg Oral Capsule - take 1 capsule ORAL route every 12 hours for 10 days; 20 capsule; Refills: 0, dr5 Product Selection Permitted - Bactrim DS 800-160 mg Oral Tablet - take 1 tablet ORAL route every 12 hours for 7 days; 14 tablet; Refills: 0, dr5 Product Selection Permitted Signatures: Viola Jarrett RN RN ll1 Cy Reid DO DO ms3 NORBERTO VILLAFUERTE RN RN dd2 Clay Khan, FAHAD-Susanna ACTUARIAL ASSOCIATE-Cdr5
--- NOTE | 2025-07-22 13:06 | ER ---
Nurse's Notes [facility] Name: Remy Irwin Age: 74 yrs Sex: Male : 1950 Arrival Date: 07/22/2025 Time: 11:46 Bed 11 Private MD: Diagnosis: Cellulitis of abdominal wall-left lower abdomen Presentation: 07/22 11:58 Chief complaint: Patient states: Rash to abdomen and upper legs for 2 months. ll1 Coronavirus screen: Client denies travel out of the [place] in the last 14 days. At this time, the client does not indicate any symptoms associated with coronavirus-19. Ebola Screen: Patient denies travel to an Ebola-affected area in the 21 days before illness onset. Initial Sepsis Screen: Does the patient meet any 2 criteria? No. Patient's initial sepsis screen is negative. Does the patient have a suspected source of infection? No. Patient's initial sepsis screen is negative. Risk Assessment: Do you want to hurt yourself or someone else? Patient reports no desire to harm self or others. Onset of symptoms was May 21, 2025. 11:58 Method Of Arrival: Ambulatory ll1 11:58 Acuity: ABISAI 4 ll1 Triage Assessment: 12:12 General: Appears in no apparent distress. Behavior is calm, cooperative, appropriate ll1 for age. Pain: Denies pain. Derm: Reports rash to abdomen and upper legs. Historical: - Allergies: 11:57 Codeine; ll1 - PMHx: 11:57 Angina; asbestosis; CAD; COPD; Hypertension; skin ca; ll1 - PSHx: 11:57 skin CA removed (skin ca); ll1 - Immunization history:: Adult Immunizations up to date. - Infectious Disease History:: Denies. - Social history:: Smoking status: Patient reports the use of cigarette tobacco products, smokes one-half pack cigarettes per day. Screenin:10 [facility] ED Fall Risk Assessment (Adult) History of falling in the last 3 months, ll1 including since admission No falls in past 3 months (0 pts) Confusion or Disorientation No (0 pts) Intoxicated or Sedated No (0 pts) Impaired Gait No (0 pts) Mobility Assist Device Used No (0 pt) Altered Elimination No (0 pt) Score/Fall Risk Level 0 - 2 = Low Risk Maintained a safe environment, Hourly rounding (assess needs \T\ fall precautionary measures) done. Abuse screen: Denies threats or abuse. Nutritional screening: No deficits noted. Tuberculosis screening: No symptoms or risk factors identified. Assessment: 13:08 Reassessment: No changes from previously documented assessment. Patient and/or family ll1 updated on plan of care and expected duration. Pain level reassessed. Vital Signs: 11:58 BP 135 / 73; Pulse 67; Resp 17; Temp 97.6; Pulse Ox 100% ; Weight 75.3 kg; Height 6 ft. ll1 0 in. ; Pain 2/10; 11:58 Body Mass Index 22.51 (75.30 kg, 182.88 cm) ll1 11:58 Pain Scale: Adult ll1 ED Course: 11:50 Patient arrived in ED. im 11:50 Clay Khan FNP-C [facility]. dr5 11:50 Cy Reid DO is Attending Physician. dr5 11:59 Triage completed. ll1 11:59 Arm band placed on. ll1 12:00 Patient has correct armband on for positive identification. Provided Education on: ER ll1 procedures and process. 12:12 Patient placed in an exam room, on a stretcher. ll1 13:10 No provider procedures requiring assistance completed. Patient did not have IV access ll1 during this emergency room visit. Administered Medications: 12:26 Drug: Cephalexin PO 500 mg PO once Route: PO; dd2 12:26 Follow up: Response: No adverse reaction ll1 13:34 Follow up: Response: No adverse reaction ll1 12:26 Drug: Trimethoprim-Sulfamethoxazole PO (160 mg-800 mg (DS) 1 tablet PO once Route: PO; dd2 13:10 Follow up: Response: No adverse reaction ll1 Medication: 13:36 VIS not applicable for this client. ll1 Outcome: 13:06 Discharge ordered by MD. dr5 13:10 Patient left the ED. ll1 13:10 Discharged to home ambulatory, ll1 13:10 Condition: stable 13:10 Discharge instructions given to patient, Instructed on discharge instructions, follow up and referral plans. medication usage, Demonstrated understanding of instructions, follow-up care, medications, Prescriptions given X 2, Signatures: Viola Jarrett RN RN ll1 Umm Garcia im NORBERTO VILLAFUERTE RN RN dd2 Khan, Clay, INSPECTOR [employer]STALLATIONS-C [employer]OR [employer]ATIONS-Cdr5
[2025-07-22 13:30] VITALS: BP 122/90; TEMP 98.9; O2SAT 99
== END 2025-07-22 13:10 | disposition home or self-care (01) ==
LOC: ER 11:46
DX: L03.311 Cellulitis of abdominal wall (principal)
CPT/HCPCS: 99283